=== PATIENT | male | born 1950 | race Caucasian/White ===

== ENCOUNTER 2019-04-06 06:26 | Emergency (ER) | payer MEDICARE, OTHER ==
[~2019-04-06] VITALS: Ht 177.8 cm; Wt 93.0 kg
[~2019-04-06 06:26] MED LIST: ALEVE220 MG PO; ASPIRIN EC81 MG PO; CLOPIDOGREL75 MG PO; SIMVASTATIN10 MG PO; TYLENOL325 MG PO
--- OUTSIDE RECORDS SUMMARY | 2019-04-06 08:22 | XMS ---
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 Care History Medical/Surgical 04/06/2019 [facility] - Patient is currently established with [facility]. If patient is seen in the ED during business hours. Please contact [facility] at [facility]. Care Recommendation: This patient has had 5 or more Emergency Department visits in the last 12 months.\T\nbsp; Patient requires education on the scope and purpose of the ED as an acute care provider not a Primary Care Provider and should not be utilized for chronic conditions.\T\nbsp; These are guidelines and the provider should exercise clinical judgment when providing care. E.D. VISIT COUNT (12 MO.) 1 [place] TOTAL 1 NOTE: Visits indicate total known visits. ED/UCC VISIT TRACKING (12 MO.) 04/06/2019 06:27 [facility] [place] TYPE: Emergency COMPLAINT: - [facility] INPATIENT VISIT TRACKING (12 MO.) No inpatient visits to display in this time frame [email or web address]
--- NOTE | 2019-04-06 13:02 | EKG ---
[facility] [address] [place] [address] Signed Sinus bradycardia with occasional premature ventricular complexes Otherwise normal ECG No previous ECGs available Confirmed by SHIRA DIEHL MD ([id number] on 04/06/2019 1:02:25 PM Electronically Signed By: SHIRA DIEHL MD 04/06/19 1302 PATIENT NAME: EDWARD ETIENNE Electrocardiogram DATE OF : 54 PHYSICIAN: SHIRA DIEHL MD REPORT #: [id number] REPORT IS CONFIDENTIAL AND NOT TO BE RELEASED WITHOUT AUTHORIZATION
== END 2019-04-06 08:20 | disposition home or self-care (01) ==
LOC: ED 06:26
DX: R00.2 Palpitations (principal); I25.2 Old myocardial infarction; Z95.5 Presence of coronary angioplasty implant and graft; Z79.82 Long term (current) use of aspirin; Z79.899 Other long term (current) drug therapy
CPT/HCPCS: 80053; 83735; 84484; 85025; 93005; 93010; 93225; 93226; 93227; 99285-25